=== PATIENT | male | born 1935 | race Caucasian/White ===

== ENCOUNTER 2017-02-16 10:25 | Emergency (ER) | payer OTHER ==
[~2017-02-16] VITALS: Wt 104.3 kg
[~2017-02-16 10:25] MED LIST: 'CLONIDINE0.1 MG PO; AMLODIPINE BESYL5 MG PO; Cimetidine300 MG PO; FAMVIR500 MG PO; Glimepiride1 MG PO; JANTOVEN4 M1 PO; LOTRISONE 0.05%45 GM T; SIMVASTATIN20 MG PO; TYLENOL325 M1 PO; VALSARTAN-HCTZ1 EAC1 PO
[2017-02-16] MEDS ORDERED: ZOCOR20 MG PO (10:45)
[2017-02-16] MEDS ORDERED: DIABETA,MICRO1.25 MG PO (10:45)
[2017-02-16] MEDS ORDERED: OMEPRAZOLE20 M2 PO (10:45)
[2017-02-16] MEDS ORDERED: Hyzaar 12.5 MG-1 TAB PO (10:45)
[2017-02-16] MEDS ORDERED: COUMADIN4 M2 PO (10:46)
[2017-02-16] MEDS ORDERED: DAILY VALUE1 EACH PO (10:46)
[2017-02-16] MEDS ORDERED: METOPROLOL TART50 M1 PO (10:46)
[2017-02-16 11:01] LABS: BASO % 0.4 % (0.0-1.0); EOS # 0.3 10*3/uL (0.0-0.4); EOS % 2.8 % (1.0-4.0); HEMATOCRIT 45.4 % (42.0-52.0); HEMOGLOBIN 15.4 g/dl (14.0-18.0); LYMPH % 36.2 % (27.0-41.0); MEAN CORPUSCULAR HGB 30.2 pg (27.0-31.0); MEAN CORPUSCULAR HGB CONC 33.9 g/dl (33.0-37.0); MEAN PLATELET VOLUME 10.2 fl (9.6-12.3); MONO # 1.2 10*3/uL (0.1-1.0); MONO % 10.6 % (3.0-9.0); NEUT # 5.5 10*3/uL (2.3-7.9); NEUT % 49.6 % (47.0-73.0); PLATELET COUNT AUTOMATED 193 10*3/uL (130-400); RED CELL DISTRI WIDTH 12.9 % (0-14.5); WHITE BLOOD COUNT 11.1 10*3/uL (4.8-10.8)
[2017-02-16 11:10] LABS: INTERNATIONAL NORM RATIO 1.1 (2.0-3.5)
[2017-02-16 11:19] LABS: ALBUMIN 3.7 gm/dl (3.1-4.5); ALKALINE PHOSPHATASE 56 U/L (45-117); BILIRUBIN, TOTAL 0.9 mg/dl (0.2-1.0); BUN 24 mg/dl (7-24); CARBON DIOXIDE 22 mmol/L (21-32); CHLORIDE 104 mmol/L (98-107); EST GLOM FILT AFRICAN AMERICAN 52 ml/min; GLUCOSE 209 mg/dL (65-99); MAGNESIUM 1.8 mg/dL (1.5-2.1); POTASSIUM 3.2 mmol/L (3.5-5.1); SGOT/AST 20 IU/L (3-35); SGPT/ALT 24 U/L (12-78); SODIUM 139 mmol/L (136-145); TOTAL PROTEIN 7.5 gm/dL (6.4-8.2)
[2017-02-16 11:20] LABS: TROPONIN I < 0.015 ng/ml (<0.045)
[2017-02-16] MEDS ORDERED: PREDNISONE10 MG PO (12:04)
[2017-02-16] MEDS ORDERED: 'PARAFON FORTE500 M1 PO (12:04)
[2017-02-16] MEDS ORDERED: HYDROCODONE BIT1 T11 PO (12:04)
[2017-02-16 12:17] VITALS: BP 150/72
== END 2017-02-16 13:27 | disposition home or self-care (01) ==
LOC: ED 10:25
PROVIDERS: Nurse Practitioner Family
DX: M54.32 Sciatica, left side (principal); M25.552 Pain in left hip; R03.0 Elevated blood-pressure reading, without diagnosis of hypertension; Z79.899 Other long term (current) drug therapy

== ENCOUNTER 2017-02-17 21:52 | Emergency (ER) | payer OTHER ==
[~2017-02-17] VITALS: Ht 170.1 cm; Wt 99.8 kg
[~2017-02-17 21:52] MED LIST changes: +'PARAFON FORTE500 M1 PO; +COUMADIN4 M2 PO; +DAILY VALUE1 EACH PO; +DIABETA,MICRO1.25 MG PO; +HYDROCODONE BIT1 T11 PO; +Hyzaar 12.5 MG-1 TAB PO; +METOPROLOL TART50 M1 PO; +OMEPRAZOLE20 M2 PO; +PREDNISONE10 MG PO; +ZOCOR20 MG PO
[2017-02-17 21:56] VITALS: BP 185/85
[2017-02-17 22:39] LABS: BASO % 0.2 % (0.0-1.0); HEMATOCRIT 47.5 % (42.0-52.0); HEMOGLOBIN 15.6 g/dl (14.0-18.0); LYMPH # 1.1 10*3/uL (1.3-4.4); MEAN CELL VOLUME 90.8 fl (80.0-94.0); MEAN CORPUSCULAR HGB 29.8 pg (27.0-31.0); MEAN CORPUSCULAR HGB CONC 32.8 g/dl (33.0-37.0); MEAN PLATELET VOLUME 10.2 fl (9.6-12.3); MONO # 0.5 10*3/uL (0.1-1.0); MONO % 4.7 % (3.0-9.0); NEUT # 9.7 10*3/uL (2.3-7.9); NEUT % 84.8 % (47.0-73.0); PLATELET COUNT AUTOMATED 179 10*3/uL (130-400); RED BLOOD COUNT 5.23 10*6/uL (4.50-5.90); RED CELL DISTRI WIDTH 13.1 % (0-14.5); WHITE BLOOD COUNT 11.4 10*3/uL (4.8-10.8)
[2017-02-17 22:50] LABS: INTERNATIONAL NORM RATIO 1.3 (2.0-3.5); PROTHROMBIN TIME 13.6 SECONDS (9.0-12.4)
[2017-02-17 22:53] LABS: POTASSIUM 4.4 mmol/L (3.5-5.1)
[2017-02-18 00:37] LABS: LA>2 REFLEX 2 HR DRAW NOW
== END 2017-02-18 00:31 | disposition short-term general hospital (02) ==
LOC: ED 21:52
PROVIDERS: Student in an Organized Health Care Education/Training Program
DX: I73.89 Other specified peripheral vascular diseases (principal); Z98.890 Other specified postprocedural states; Z90.49 Acquired absence of other specified parts of digestive tract; Z79.01 Long term (current) use of anticoagulants; Z79.899 Other long term (current) drug therapy; Z85.828 Personal history of other malignant neoplasm of skin

== ENCOUNTER 2017-06-30 09:45 | Inpatient (IN) | payer OTHER ==
[~2017-06-30] VITALS: Ht 167.6 cm; Wt 99.8 kg
[~2017-06-30 09:45] MED LIST changes: +METOPROLOL SUCC50 M1 PO; -METOPROLOL TART50 M1 PO
[2017-06-30 10:00] VITALS: BP 149/62
--- NOTE | 2017-06-30 10:14 | NUR ---
PATIENT REFUSES AT THIS TIME TO GET CHANGED OUT OF HIS PANTS AND SHIRTS. REFUSES GOWN.
[2017-06-30 11:06] LABS: BASO % 0.3 % (0.0-1.0); EOS # 0.2 10*3/uL (0.0-0.4); EOS % 2.7 % (1.0-4.0); HEMATOCRIT 42.2 % (42.0-52.0); HEMOGLOBIN 13.7 g/dl (14.0-18.0); LYMPH # 1.8 10*3/uL (1.3-4.4); LYMPH % 25.2 % (27.0-41.0); MEAN CELL VOLUME 85.1 fl (80.0-94.0); MEAN CORPUSCULAR HGB 27.6 pg (27.0-31.0); MEAN CORPUSCULAR HGB CONC 32.5 g/dl (33.0-37.0); MEAN PLATELET VOLUME 9.6 fl (9.6-12.3); MONO # 0.7 10*3/uL (0.1-1.0); MONO % 10.6 % (3.0-9.0); NEUT # 4.3 10*3/uL (2.3-7.9); NEUT % 60.9 % (47.0-73.0); PLATELET COUNT AUTOMATED 200 10*3/uL (130-400); RED BLOOD COUNT 4.96 10*6/uL (4.50-5.90); RED CELL DISTRI WIDTH 15.5 % (0-14.5)
--- NOTE | 2017-06-30 11:09 | NUR ---
PATIENT LEFT LOWER LEG HAS BEEN REWRAPPED WITH GAUZE. HARPREET CHANEY NOTIFIED TO REWRAP WITH PROPER DRESSING ONCE PATIENT IS ON THE FLOOR AND THE WOUND PICTURES HAV BEEN TAKEN BY ADMIT NURSE.
--- NOTE | 2017-06-30 11:12 | NUR ---
PATIENT TAKEN TO 5TH FLOOR AT THIS TIME BY LISET CHANEY.
[2017-06-30 11:15] LABS: ACT PARTIAL THROMBO TIME 33.3 SECONDS (20.8-31.5); INTERNATIONAL NORM RATIO 2.6 (2.0-3.5)
--- NOTE | 2017-06-30 11:15 | NUR ---
Time: 1114 A 82 year old MALE admitted to 5E under services of DOUGLAS MARQUEZ DO. Pt. arrived via bed from ER. Chief complaint: CELLULITIS OF LEFT LEG. [place]
[2017-06-30 11:21] LABS: ALBUMIN 3.3 gm/dl (3.1-4.5); ALKALINE PHOSPHATASE 57 U/L (45-117); BUN 17 mg/dl (7-24); CHLORIDE 102 mmol/L (98-107); CREATININE 1.05 mg/dL (0.70-1.30); LIPASE 191 U/L (73-393); POTASSIUM 3.8 mmol/L (3.5-5.1); SGOT/AST 19 IU/L (3-35); SGPT/ALT 22 U/L (12-78); SODIUM 138 mmol/L (136-145); TOTAL PROTEIN 7.3 gm/dL (6.4-8.2)
[2017-06-30 11:22] LABS: TROPONIN I < 0.015 ng/ml (<0.045)
[2017-06-30 11:30] VITALS: BP 164/76
[2017-06-30 11:50] VITALS: BP 162/86
[2017-06-30] MEDS ORDERED: METFORMIN500 MG PO (12:09)
[2017-06-30] MEDS ORDERED: Diltiazem180 MG PO (12:10)
[2017-06-30] MEDS ORDERED: VALSARTAN160 MG PO (12:11)
[2017-06-30] MEDS ORDERED: MULTI-VITAMIN1 EACH PO (12:12)
[2017-06-30] MEDS ORDERED: Glimepiride1 MG PO (12:13)
--- NOTE | 2017-06-30 13:15 | NUR ---
DR. VALDEZ SEEN PERSONALLY AND NOTIFIED OF PT CONSULT. THE DR WAS UPDATED ON THE PATIENTS CONDITION AND AND HX. NO CONCERN FROM THE DR. HE STATED HE WOULD GO AND SEE THE PT SOON.
[2017-06-30 16:00] VITALS: BP 150/79
[2017-06-30] MEDS ORDERED: VITAMIN C500 M4 PO (16:53)
[2017-06-30 20:00] VITALS: BP 168/76
--- NOTE | 2017-06-30 21:00 | NUR ---
RESTING IN BED WITH NO DISTRESS NOTED. RESPIRATIONS EASY. LUNGS DIMINISHED, CLEAR. PULSE OX 97% RA. +1 RLE EDEMA, +2 LLE EDEMA WITH DRESSING MAINTAINED. CALL LIGHT WITHIN REACH. NO VOICED COMPLAINTS
--- NOTE | 2017-06-30 22:31 | NUR ---
REQUESTED AND RECEIVED TYLENOL PER PRN ORDER FOR COMPLAINTS OF HEADACHE RATING A 7. CALL LIGHT WITHIN REACH. WILL MONITOR FOR EFFECTIVENESS
[2017-07-01] VITALS: BP 149/77
--- NOTE | 2017-07-01 | NUR ---
EARLIER MEDS APPEAR EFFECTIVE. SLEEPING. RESPIRATIONS EASY. VSS. CALL LIGHT WITHIN REACH.
[2017-07-01] MEDS ORDERED: VALSARTAN-HCTZ1 EAC1 PO (04:13)
[2017-07-01] MEDS ORDERED: JANTOVEN4 M1 PO (04:13)
--- NOTE | 2017-07-01 06:00 | NUR ---
SLEPT THROUGHOUT NIGHT WITH NO DISTRESS NOTED. RESPIRATIONS EASY. CALL LIGHT WITHIN REACH. NO VOICED COMPLAINTS THIS SHIFT
[2017-07-01 07:10] LABS: BASO % 0.3 % (0.0-1.0); EOS # 0.2 10*3/uL (0.0-0.4); EOS % 3.1 % (1.0-4.0); HEMOGLOBIN 13.1 g/dl (14.0-18.0); LYMPH % 32.1 % (27.0-41.0); MEAN CELL VOLUME 84.4 fl (80.0-94.0); MEAN CORPUSCULAR HGB 27.6 pg (27.0-31.0); MEAN CORPUSCULAR HGB CONC 32.8 g/dl (33.0-37.0); MEAN PLATELET VOLUME 9.6 fl (9.6-12.3); MONO # 0.8 10*3/uL (0.1-1.0); MONO % 12.3 % (3.0-9.0); NEUT # 3.2 10*3/uL (2.3-7.9); NEUT % 51.9 % (47.0-73.0); PLATELET COUNT AUTOMATED 181 10*3/uL (130-400); RED BLOOD COUNT 4.74 10*6/uL (4.50-5.90); RED CELL DISTRI WIDTH 15.5 % (0-14.5); WHITE BLOOD COUNT 6.1 10*3/uL (4.8-10.8)
[2017-07-01 07:46] LABS: INTERNATIONAL NORM RATIO 2.3 (2.0-3.5)
[2017-07-01 07:49] LABS: ALBUMIN 3.1 gm/dl (3.1-4.5); ALKALINE PHOSPHATASE 50 U/L (45-117); BUN 16 mg/dl (7-24); CHLORIDE 102 mmol/L (98-107); CHOLESTEROL 150 mg/dL (<200); CREATININE 0.94 mg/dL (0.70-1.30); FREE T4 1.16 ng/dl (0.76-1.46); HDL CHOLESTEROL 32 mg/dl (40-60); LDL CHOLESTEROL 61 mg/dL (9-159); PHOSPHOROUS 3.6 mg/dL (2.5-4.9); POTASSIUM 3.7 mmol/L (3.5-5.1); SGOT/AST 19 IU/L (3-35); SGPT/ALT 22 U/L (12-78); SODIUM 138 mmol/L (136-145); TOTAL PROTEIN 6.7 gm/dL (6.4-8.2); TRIGLYCERIDES 283 mg/dl (<150); VLDL CHOLESTEROL 57 mg/dL (6-40)
[2017-07-01 08:00] VITALS: BP 152/80
--- NOTE | 2017-07-01 08:05 | NUR ---
PT SITTING UP EATING BREAKFAST. NO DISTRESS NOTED. WILL MONITOR
[2017-07-01 08:10] LABS: VITAMIN D, 25-HYDROXY 30.1 ng/mL (30-100)
--- NOTE | 2017-07-01 09:00 | NUR ---
Counter Weigher in to talk to patient. Patient states lives at home with . There are no steps in the home. Physician: harinder Pharmacy: Home health services: [facility] Patient's level of ADLs: MINIMAL ASSIST Patient has working utilities: all working DME: cane, walker, wheelchair Follow-up physician's appointment after d/c: will be made by hospitalist nurse director upon discharge Does patient want to access PORTAL?: no Discharge plan discussed with patient, patient lives at home with his , states he uses a cane or walker for ambulation, patient states he has [facility] and wants them resumed when he is stable for discharge, mechanical planner will notify [facility] when patient is medically stable for discharge. QIANA WICK
--- NOTE | 2017-07-01 10:39 | NUR ---
Patient is currently active with [facility]. Will need a resume home health order prior to discharge.
--- NOTE | 2017-07-01 11:47 | NUR ---
CALLED JOE JACKMAN REGARDING PT HR 50S. HELD JORGE, CHRISTOPHER, AND ILA PER JOE
[2017-07-01 12:00] VITALS: BP 133/75
--- NOTE | 2017-07-01 12:29 | NUR ---
ANTOINE MONTALVO [id number] Please refer to the physician's history and physical for past medical history, comorbid conditions, and allergies. Diagnosis: CELLULITIS OF LEFT LOWER EXTREMITY Fermin Score: 20,LOW OR NO RISK WOUND DESCRIPTIONS: Location of the wound: left top of foot Type of wound: unstageable Thickness: Full Size: 3.0cm x 3.0cm x <0.1cm Tunneling: none Undermining: none Sinus Tract: none Presence of Exudate: none Amount: None Color: Brown Odor: None Periwound Skin Appearance: Normal Wound edges: closed Pain (associated with wound): none at time of assessment How does patient state this happened? pt stated had surgery on february 18 and was following with wound care center [facility] but unable to afford it and is just following up with Dr. Street is PCP for his wounds. This nurse encouraged patient to follow up with wound care after discharge and patient stated he will continue his visiting nurses and follow up with his PCP. Location of the wound: left leg medial Type of wound: surgical Thickness: Partial Size: 12.0cm x 2.4cm x 0.1cm Tunneling: none Undermining: none Sinus Tract: none Presence of Exudate: Serosanguineous Amount: Light Color: Red Odor: None Periwound Skin Appearance: Erythema Wound edges: approximated Pain (associated with wound): none at time of assessment How does patient state this happened? pt stated had surgery on february 18 and was following with wound care center [facility] but unable to afford it and is just following up with Dr. Street is PCP for his wounds. This nurse encouraged patient to follow up with wound care after discharge and patient stated he will continue his visiting nurses and follow up with his PCP. Location of the wound: left posterior leg Type of wound: surgical Thickness: Partial Size: 0.7cm x 1.5cm x 0.1cm Tunneling: none Undermining: none Sinus Tract: none Presence of Exudate: Serosanguineous Amount: Light Color: Red Odor: None Periwound Skin Appearance: Erythema Wound edges: approximated Pain (associated with wound): none at time of assessment How does patient state this happened? pt stated had surgery on february 18 and was following with wound care center [facility] but unable to afford it and is just following up with Dr. Street is PCP for his wounds. This nurse encouraged patient to follow up with wound care after discharge and patient stated he will continue his visiting nurses and follow up with his PCP. Surface the patient is resting on: Position Pro SKIN PREVENTION RECOMMENDATION: 1. Pressure redistribution support surface as appropriate 2. Elevate heels 3. Remove boots/TEDS every shift and reapply 4. Head of bed 30 degrees as tolerated 5. Assess nutrition and hydration 6. Manage moisture 7. Avoid the use of containment devices while in bed 8. Use absorptive products on surfaces limit layers of linens on bed 9. Turn and reposition every 1-2 hours in bed and every 1 hour in chair as tolerated 10. Weight shifts every 15 minutes while up in chair 11. Offloading with pillows or device to keep heels elevated off bed 12. Monitor skin at least every shift 13. Inspect under medical devices twice a day WOUND TREATMENT RECOMMENDATIONS: Spoke with Dr. Trammell regarding patient needing dressin change orders he stated cleanse with nss and apply adaptic cover with 4x4 or abd and wrap with kerlix daily and prn for soiling.
[2017-07-01 16:00] VITALS: BP 171/75
--- NOTE | 2017-07-01 18:48 | NUR ---
SPOKE WITH JOE JACKMAN REGARDING PT BP AND HR. PT TO HAVE COZZAR PER JOE
--- NOTE | 2017-07-01 19:30 | NUR ---
ASSUMED CARE OF PT AT THIS TIME, RESPS EASY AND NONLABORED WITH NO S/S OF DISTRESS CALL LIGHT WITH IN REACH
[2017-07-01 20:00] VITALS: BP 164/78
[2017-07-02] VITALS: BP 155/88
--- NOTE | 2017-07-02 01:57 | NUR ---
RESTING IN BED WITH EYES CLOSED RESPS EASY AND NONLABORED WITH NO S/S OF DISTRESS CALL LIGHT WITH IN REACH
[2017-07-02 08:00] VITALS: BP 170/84
--- NOTE | 2017-07-02 09:00 | NUR ---
case management visits with patient, patient states he will be going home when able and wants to resume [facility], will notify [facility] when patient is medically stable for discharge
[2017-07-02 12:00] VITALS: BP 180/84
[2017-07-02 16:00] VITALS: BP 170/87
[2017-07-02 20:00] VITALS: BP 176/79
[2017-07-03] VITALS: BP 1164/86; BP 164/86
--- NOTE | 2017-07-03 01:09 | NUR ---
24 HR chart check completed.
[2017-07-03 08:00] VITALS: BP 159/70
--- NOTE | 2017-07-03 09:00 | NUR ---
case management visits with patient, patient states he will be going back home and will have [facility] see him, convention planner will notify [facility] when patient is medically stable for discharge
--- NOTE | 2017-07-03 11:15 | NUR ---
PATIENT STATES LEAVING AMA BECAUSE WOUND CARE DOCTOR CLEARED HIM TO GO AND HE WILL NOT WAIT FOR ANOTHER DOCTOR (HOSPITALIST) TO SEE HIM, HAS BEEN WAITING FOR TWO DAYS, NOW WANTS TO LEAVE. PATIENT LEFT AMA, AMBULATORY TO FRONT LOBBY FOR TRANSPORT HOME BY PRIVATE VEHICLE AGAINST MEDICAL ADVICE. DR. PRITCHETT NOTIFIED.
== END 2017-07-03 11:21 | disposition left against medical advice (07) | DRG 863 ==
LOC: ED 09:45 → EDHOLD 10:43 → 5E 10:43
PROVIDERS: Emergency Medicine; Registered Nurse; ADMIT Internal Medicine
PROC: 0H5LXZZ Destruction of Left Lower Leg Skin, External Approach (ICD-10-PCS; principal; 2017-07-01)
DX: T81.4XXA Infection following a procedure, initial encounter (principal); E11.51 Type 2 diabetes mellitus with diabetic peripheral angiopathy without gangrene; E11.621 Type 2 diabetes mellitus with foot ulcer; L03.116 Cellulitis of left lower limb; L97.829 Non-pressure chronic ulcer of other part of left lower leg with unspecified severity; Y92.89 Other specified places as the place of occurrence of the external cause; Y83.8 Other surgical procedures as the cause of abnormal reaction of the patient, or of later complication, without mention of misadventure at the time of the procedure; R00.1 Bradycardia, unspecified; M71.22 Synovial cyst of popliteal space [Baker], left knee; E78.5 Hyperlipidemia, unspecified; I10 Essential (primary) hypertension; Z53.21 Procedure and treatment not carried out due to patient leaving prior to being seen by health care provider; Z82.49 Family history of ischemic heart disease and other diseases of the circulatory system; Z83.3 Family history of diabetes mellitus; Z79.01 Long term (current) use of anticoagulants; Z86.718 Personal history of other venous thrombosis and embolism; Z85.828 Personal history of other malignant neoplasm of skin; Z90.49 Acquired absence of other specified parts of digestive tract; Z79.899 Other long term (current) drug therapy

== ENCOUNTER 2019-08-16 09:13 | Inpatient (IN) | payer OTHER ==
[2019-08-16] VITALS (9 sets, daily range): BP systolic 104–136; BP diastolic 52–84
[~2019-08-16] VITALS: Ht 172.7 cm; Wt 90.3 kg
[~2019-08-16 09:13] MED LIST changes: +Diltiazem180 MG PO; +METFORMIN500 MG PO; +MULTI-VITAMIN1 EACH PO; +VALSARTAN160 MG PO; +VITAMIN C500 M4 PO
--- NOTE | 2019-08-16 09:26 | NUR ---
PT UNABLE TO PROVIDE URINE SPECIMEN AT THIS TIME.
--- NOTE | 2019-08-16 09:30 | NUR ---
PT DECLINES TO DUISROBE HIS PANTS UNTIL ARRIVAL AT INPATIENT BED.
[2019-08-16 09:58] LABS: BASO % 0.2 % (0.0-1.0); EOS # 0.1 10*3/uL (0.0-0.4); HEMATOCRIT 41.7 % (42.0-52.0); HEMOGLOBIN 13.8 g/dl (14.0-18.0); LYMPH # 2.5 10*3/uL (1.3-4.4); LYMPH % 18.8 % (27.0-41.0); MEAN CELL VOLUME 91.4 fl (80.0-94.0); MEAN CORPUSCULAR HGB 30.3 pg (27.0-31.0); MEAN CORPUSCULAR HGB CONC 33.1 g/dl (33.0-37.0); MEAN PLATELET VOLUME 9.7 fl (9.6-12.3); MONO # 1.2 10*3/uL (0.1-1.0); MONO % 9.3 % (3.0-9.0); NEUT # 9.2 10*3/uL (2.3-7.9); NEUT % 70.2 % (47.0-73.0); PLATELET COUNT AUTOMATED 392 10*3/uL (130-400); RED BLOOD COUNT 4.56 10*6/uL (4.50-5.90); RED CELL DISTRI WIDTH 13.1 % (0-14.5)
[2019-08-16 10:13] LABS: ALBUMIN 3.8 gm/dl (3.1-4.5); ALKALINE PHOSPHATASE 60 U/L (45-117); BUN 84 mg/dl (7-24); CHLORIDE 97 mmol/L (98-107); CREATININE 2.55 mg/dL (0.70-1.30); LIPASE 219 U/L (73-393); POTASSIUM 3.5 mmol/L (3.5-5.1); SGOT/AST 21 IU/L (3-35); SGPT/ALT 19 U/L (12-78); SODIUM 133 mmol/L (136-145); TOTAL PROTEIN 8.4 gm/dL (6.4-8.2)
[2019-08-16 10:14] LABS: TROPONIN I < 0.015 ng/ml (<0.045)
[2019-08-16 10:30] LABS: ACT PARTIAL THROMBO TIME 75.8 SECONDS (20.0-32.1)
[2019-08-16 10:34] LABS: INTERNATIONAL NORM RATIO > 9.3 (2.0-3.5)
--- NOTE | 2019-08-16 10:34 | NUR ---
NOTIFIED BY LAB PTS INR IS GREATER THAN 9.3. DR COLEY NOTIFIED.
[2019-08-16 11:35] LABS: BILIRUBIN NEGATIVE (NEGATIVE); BLOOD NEGATIVE (NEGATIVE); CLARITY SL CLOUDY (CLEAR); COLOR YELLOW (YELLOW); GLUCOSE NEGATIVE (NEGATIVE); KETONE TRACE (NEGATIVE); LEUKO ESTERASE NEGATIVE (NEGATIVE); NITRITE NEGATIVE (NEGATIVE); PH 5.5 (5.0-9.0); UROBILINOGEN 0.2 E.U./dl (0.2-1.0)
[2019-08-16 11:46] LABS: BACTERIA TRACE; EPITHELIAL CELLS 0-2; WBC 0-2 wbc/hpf (0-5)
--- NOTE | 2019-08-16 12:54 | NUR ---
PT REPORTS BLack STOOL TO THE DR WHO DOES A RECTAL EXCAM AND FINDS +HEMACULT IN STOOL. ADMISSION PENDING.
--- NOTE | 2019-08-16 14:08 | NUR ---
BED ASSIGNED ICU 6. AWAITING OPPORTUNITY TO PROVIDE NURSE REPORT.
--- NOTE | 2019-08-16 14:23 | NUR ---
INFORMED CONSENT FOR F.F.P.'S OBTAINED NOW.
--- NOTE | 2019-08-16 14:50 | NUR ---
A 84, admitted to ICCU, under the services of TERRY Jarvis DO with a diagnosis of ANEMIA. Chief complaint is ABDOMINAL PAIN, . Patient arrived via stretcher from ER. Monitor applied. Initial assessment completed. Vital signs taken and recorded. TERRY JARVIS DO notified of admission to the unit. Orders received. See assessment for past medical history, medications and allergies. Patient and/or family oriented to unit. [facility] ICCU visitation policy reviewed. Clothing/patient valuable form completed. KALANI SALEEM
--- NOTE | 2019-08-16 14:55 | NUR ---
ADMISSION IN PROGRESS TO ICCU NOW.
--- NOTE | 2019-08-16 15:00 | NUR ---
A 84, admitted to ICCU, under the services of TERRY Jarvis DO with a diagnosis of GI BLEED, ACUTE BLOOD LOSS, WARFARIN INDUCED. Chief complaint is ABD PAIN & NAUSEA W/O BLOOD, BLOOD IN URINE & STOOLS. . Patient arrived via stretcher from ER. Monitor applied. Initial assessment completed. Vital signs taken and recorded. TERRY JARVIS DO notified of admission to the unit. Orders received. DR WATTERS CAME TO VISIT. IV FFP INFUSING See assessment for past medical history, medications and allergies. Patient and/or family oriented to unit. [facility] ICCU visitation policy reviewed. Clothing/patient valuable form completed. MORGAN STEELE
--- NOTE | 2019-08-16 15:03 | NUR ---
ER CALLED THAT BED IS READY & PATIENT CAN BE BROUGHT UP
--- NOTE | 2019-08-16 15:24 | NUR ---
DR LORENZ HERE TO SEE THE PATIENT
--- NOTE | 2019-08-16 15:33 | NUR ---
DENIES ALL C/O WITH FFP INFUSION
--- NOTE | 2019-08-16 16:18 | NUR ---
FFP COMPLETED & VITAMIN K IV STARTED
--- NOTE | 2019-08-16 16:26 | NUR ---
DR STAPLES ROUNDED FOR CARDIOLOGY & HE SAID NO NEED TO CALL THE ANSWERING SERVICE DR ESCOBAR IS ALREADY AWARE & IS COMING UP
[2019-08-16] MEDS ORDERED: FENOFIBRATE160 MG PO (16:53)
[2019-08-16] MEDS ORDERED: GLIPIZIDE10 M2 PO (16:56)
[2019-08-16] MEDS ORDERED: GLUCOTROL10 MG PO (16:56)
[2019-08-16] MEDS ORDERED: LASIX40 MG PO (16:57)
[2019-08-16] MEDS ORDERED: CLONIDINE0.2 MG PO (17:01)
[2019-08-16] MEDS ORDERED: JANTOVEN5 MG PO (17:02)
--- NOTE | 2019-08-16 17:08 | NUR ---
DR LORENZ, DR ESCOBAR AWARE OF HOME MEDS & ALLERGIES
[2019-08-16 19:50] LABS: INTERNATIONAL NORM RATIO 2.9 (2.0-3.5)
--- NOTE | 2019-08-16 20:23 | NUR ---
193 DR. GUIDRY BEEPED FOR CONSULT. 1939 PT RESTING IN BED WITH HOB ELEVATED. SIDE RAILS UP X'S 2. CALL LIGHT IN REACH. ALERT AND PLEASANT. PULSE OX 96% ON RA. IV FLUIDS INFUSING WELL. DENIES C/O'S PAIN OR DISCOMFORT AT PRESENT TIME. NO DISTRESS NOTED.
--- NOTE | 2019-08-16 20:45 | NUR ---
DR. GUIDRY ANSWERED - NO NEW ORDERS RECEIVED.
--- NOTE | 2019-08-16 22:15 | NUR ---
RESTING IN BED WATCHING TV. STATES "I FEEL A LOT BETTER."
[2019-08-17] VITALS: BP 115/61
--- NOTE | 2019-08-17 00:14 | NUR ---
RESTING IN BED WITH EYES CLOSED. APPEARS TO BE SLEEPING. NO DISTRESS NOTED.
[2019-08-17 04:00] VITALS: BP 114/63
--- NOTE | 2019-08-17 04:23 | NUR ---
0300 SPILLED URINAL. COMPLETE BED BATH GIVEN AND LINENS CHANGED. REPOSITIONED.
[2019-08-17 04:43] LABS: BASO % 0.3 % (0.0-1.0); EOS # 0.1 10*3/uL (0.0-0.4); EOS % 1.1 % (1.0-4.0); HEMATOCRIT 35.5 % (42.0-52.0); HEMOGLOBIN 11.9 g/dl (14.0-18.0); LYMPH # 1.8 10*3/uL (1.3-4.4); MEAN CELL VOLUME 92.4 fl (80.0-94.0); MEAN CORPUSCULAR HGB CONC 33.5 g/dl (33.0-37.0); MEAN PLATELET VOLUME 9.6 fl (9.6-12.3); MONO # 1.1 10*3/uL (0.1-1.0); MONO % 11.6 % (3.0-9.0); NEUT # 6.1 10*3/uL (2.3-7.9); NEUT % 66.6 % (47.0-73.0); PLATELET COUNT AUTOMATED 326 10*3/uL (130-400); RED BLOOD COUNT 3.84 10*6/uL (4.50-5.90); WHITE BLOOD COUNT 9.1 10*3/uL (4.8-10.8)
[2019-08-17 04:55] LABS: ACT PARTIAL THROMBO TIME 32.6 SECONDS (20.0-32.1); INTERNATIONAL NORM RATIO 1.5 (2.0-3.5)
[2019-08-17 04:59] LABS: ALBUMIN 3.3 gm/dl (3.1-4.5); CREATININE 1.71 mg/dL (0.70-1.30); PHOSPHOROUS 2.9 mg/dL (2.5-4.9); POTASSIUM 3.1 mmol/L (3.5-5.1); TOTAL PROTEIN 7.4 gm/dL (6.4-8.2)
[2019-08-17 05:18] LABS: THYROID STIM HORMONE (HS) 1.96 uIU/ml (0.358-4.75)
--- NOTE | 2019-08-17 06:11 | NUR ---
REMAINS WIHTOUT C/O'S. IV FLUIDS CONT. NO DISTRESS NOTED. CONDITION GUARDED.
[2019-08-17 07:36] LABS: VITAMIN D, 25-HYDROXY 34.2 ng/mL (30-100)
[2019-08-17 08:00] VITALS: BP 120/69
--- NOTE | 2019-08-17 08:04 | NUR ---
PHYSICAL THERAPY Screen received as well as PT orders will follow thank you Krystal Ledezma PT
[2019-08-17] MEDS ORDERED: GLIMEPIRIDE4 M1 PO (09:22)
[2019-08-17] MEDS ORDERED: GEMFIBROZIL600 MG PO (09:24)
[2019-08-17 12:00] VITALS: BP 153/81
--- NOTE | 2019-08-17 14:00 | NUR ---
PLACED UP INTO CHAIR WITH ASSIST TIMES ONE. TOLERATED FAIR.
--- NOTE | 2019-08-17 15:45 | NUR ---
Clinical Psychology Professor in to talk to patient. Patient states lives at home with his . There are 0 steps in the home. There is a chair lift. Physician: Dr. Raphael Street Pharmacy: [facility] services: would like [facility] on discharge Patient's level of ADLs: MINIMAL ASSIST Patient has working utilities: yes DME: wheelchair, walker, cane Follow-up physician's appointment after d/c: will be made by the hospitalist nurse director upon discharge Does patient want to access PORTAL?: no Discharge plan discussed with patient and his who is at the bedside. He lives at home with his . He needs minimal assistance with his ADLs and ambulates with either a walker or a cane or uses a wheelchair. Discussed short term SNF and he refuses. Discussed home health care services and he is agreeable. When provided with a list of agencies he chose [facility]. When medically stable he will be discharged to home with [facility] services. His will provide transportation on discharge. SUKHJINDER GLASGOW
[2019-08-17 16:00] VITALS: BP 154/78
[2019-08-17 20:00] VITALS: BP 143/72
--- NOTE | 2019-08-17 20:09 | NUR ---
1944 RESTING IN BED WITH HOB ELEVATED. SIDE RAILS UP X'S 2. CALL LIGHT IN REACH. PULSE OX 96% ON RA. IV FLUIDS CONT. URINAL AT BEDSIDE. LINENS ALSO WET. LINENS CHANGED AND ASHLEY CARE DONE. NO DISTRESS NOTED
--- NOTE | 2019-08-17 21:17 | NUR ---
2029 COMPLETE BED CHANGE DONE AND BED BATH GIVEN. TOELRATED WELL
[2019-08-18] VITALS (10 sets, daily range): BP systolic 145–181; BP diastolic 75–94
--- NOTE | 2019-08-18 00:20 | NUR ---
NPO FOR EGD IN AM. REMAINS WITHOUT C/O'S.
--- NOTE | 2019-08-18 04:14 | NUR ---
CONFUSED TO PLACE AND TIME. BED ALARM APPLIED. REMAINS NPO.
[2019-08-18 04:40] LABS: BASO % 0.3 % (0.0-1.0); EOS % 0.3 % (1.0-4.0); HEMATOCRIT 34.3 % (42.0-52.0); HEMOGLOBIN 11.2 g/dl (14.0-18.0); LYMPH # 1.6 10*3/uL (1.3-4.4); LYMPH % 13.7 % (27.0-41.0); MEAN CORPUSCULAR HGB 30.7 pg (27.0-31.0); MEAN CORPUSCULAR HGB CONC 32.7 g/dl (33.0-37.0); MEAN PLATELET VOLUME 9.3 fl (9.6-12.3); MONO # 1.3 10*3/uL (0.1-1.0); MONO % 11.4 % (3.0-9.0); NEUT # 8.6 10*3/uL (2.3-7.9); NEUT % 73.9 % (47.0-73.0); PLATELET COUNT AUTOMATED 305 10*3/uL (130-400); RED BLOOD COUNT 3.65 10*6/uL (4.50-5.90); RED CELL DISTRI WIDTH 12.9 % (0-14.5); WHITE BLOOD COUNT 11.6 10*3/uL (4.8-10.8)
--- NOTE | 2019-08-18 04:47 | NUR ---
TAKING MONITOR LEADS OFF. REMAINS CONFUSED. LINENS WET. ASHLEY CARE DONE AND COMPLETE BED CHANGE DONE.
[2019-08-18 05:38] LABS: CHLORIDE 111 mmol/L (98-107); CREATININE 1.35 mg/dL (0.70-1.30); PHOSPHOROUS 1.7 mg/dL (2.5-4.9); POTASSIUM 3.9 mmol/L (3.5-5.1); SODIUM 144 mmol/L (136-145)
[2019-08-18 05:44] LABS: BUN 40 mg/dl (7-24)
--- NOTE | 2019-08-18 06:08 | NUR ---
REMAINS NPO. REORIENTED FREQUENTLY. IV FLUIDS CONT. CONDITION GUARDED.
[2019-08-18 08:02] LABS: INTERNATIONAL NORM RATIO 1.1 (2.0-3.5)
--- NOTE | 2019-08-18 09:52 | NUR ---
KNUCKLER faxed [facility] order and referral to [facility]. -BOOM Mendez
--- NOTE | 2019-08-18 10:35 | NUR ---
PHYSICAL THERAPY Attempted to see pt for evaluation out of unit for procedure, EGD will follow as appropriate upon return. Krystal Ledezma PT
--- NOTE | 2019-08-18 10:36 | NUR ---
Occupational therapy orders received and chart reviewed. Patient was at an EGD upon arrival. Will check back at a later date to complete OT evaluation. Thank you. Cherry Miles, OTR/L
--- NOTE | 2019-08-18 13:05 | NUR ---
Occupational therapy orders received and chart reviewed. Patient was getting his lunch upon OT arrival. Patient requesting for OT to return after lunch and stated he would be getting HH services after discharge. Patient educated on benefits of OT treatment in the hospital and was agreeable to an evaluation at a later time. Will stop back later this afternoon. Thank you. Cherry Miles, OTR/L
--- NOTE | 2019-08-18 14:22 | NUR ---
Sales Associate Cashier in to see patient. No new needs or request at this time. When medically stable he will be discharged to home with [facility]. is agreeable. He had an EGD today.
--- NOTE | 2019-08-18 14:30 | NUR ---
Occupational therapy orders received and chart reviewed. Patient refusing therapy at this time stating, "I don't feel like getting out of bed." Per patient and nursing, patient is non-weight bearing on the right LE secondary to a foot/ankle fx from two weeks ago. Per patient, no surgery was performed. Will follow up with patient when appropriate. Thank you for the referral. Cherry Miles, OTR/L
--- NOTE | 2019-08-18 14:42 | NUR ---
PHYSICAL THERAPY Attempted to evaluate pt however pt declining therapy at this time after EGD per nsg pt has hx of R ankle/foot fx (no surgery per pt) to be [facility] w [facility]. Will follow for eval 08/19/19 Krystal Ledezma PT
[2019-08-19] VITALS: BP 144/72
--- NOTE | 2019-08-19 01:52 | NUR ---
24 HR chart check completed.
[2019-08-19 06:05] LABS: ALBUMIN 3.2 gm/dl (3.1-4.5); ALKALINE PHOSPHATASE 48 U/L (45-117); CHLORIDE 110 mmol/L (98-107); CREATININE 1.28 mg/dL (0.70-1.30); POTASSIUM 3.8 mmol/L (3.5-5.1); SGOT/AST 31 IU/L (3-35); SGPT/ALT 26 U/L (12-78); SODIUM 140 mmol/L (136-145); TOTAL PROTEIN 7.6 gm/dL (6.4-8.2)
[2019-08-19 06:06] LABS: HEMATOCRIT 34.7 % (42.0-52.0); HEMOGLOBIN 11.3 g/dl (14.0-18.0); MEAN CELL VOLUME 95.9 fl (80.0-94.0); MEAN CORPUSCULAR HGB 31.2 pg (27.0-31.0); MEAN CORPUSCULAR HGB CONC 32.6 g/dl (33.0-37.0); MEAN PLATELET VOLUME 9.8 fl (9.6-12.3); PLATELET COUNT AUTOMATED 304 10*3/uL (130-400); RED BLOOD COUNT 3.62 10*6/uL (4.50-5.90); RED CELL DISTRI WIDTH 13.2 % (0-14.5); WHITE BLOOD COUNT 14.4 10*3/uL (4.8-10.8)
[2019-08-19 06:09] LABS: BUN 26 mg/dl (7-24)
[2019-08-19 06:27] LABS: INTERNATIONAL NORM RATIO 1.1 (2.0-3.5)
[2019-08-19 07:38] LABS: BASOPHILS 1 % (0-1); PLATELET SUFFICIENCY NORMAL (NORMAL); TOTAL CELLS COUNTED 100 #CELLS
[2019-08-19 08:00] VITALS: BP 154/74
--- NOTE | 2019-08-19 09:00 | NUR ---
Portrait Photographer in to see patient. No new needs or request at this time. When medically stable he will be discharged to home with [facility] services. Dr. Noe saw and medical decisions should be deferred to the DPOA. There is no DPOA paperwork completed. The would like the patient to go home with [place]. Metoprolol and hydralazine added for HTN, BP this morning 144/72. EGD showed gastritis. Hgb 11.3.
--- NOTE | 2019-08-19 09:10 | NUR ---
RESTING IN BED WITH EYES CLOSED. DROWSY. ORIENTED TO PLACE. VITALS STABLE. LUNGS CLEAR BILATERALLY. EDEMA NOTED TO BILATERAL LOWER EXTREMITIES. CONFUSED AT TIMES
--- NOTE | 2019-08-19 10:30 | NUR ---
Occupational Therapy evaluation explained and offered with present. Patient in bed and reports that he "is all set up at home" and he is agreeable to [facility] health [facility]. When asked how patient would get up into w/c and into car to transport home when he has not bee up out of bed much since admission, he reported "oh I'll get up to go home." Patient pleasantly declined OT stating that he cannot put weight on his RLE and his left foot is sore, so he cannot put much weight on his left."I have 2 feet and I can't walk". Nurse informed of patients decline in OT services. Discharge referral per patient;s request. present and reports that she will help him. Thank yoU. Gi Plascencia OTr/l
[2019-08-19 12:00] VITALS: BP 152/64
--- NOTE | 2019-08-19 14:20 | NUR ---
PHYSICAL THERAPY Attempted to evaluate pt at the states "I don't want any therapy now" spoke w pt regarding need for increase activity however stats "I will do that at home" Spoke w pt's nurse Verna gentile pt refusing therapy and will attempt again in the AM. Krystal Ledezma PT
[2019-08-19 16:00] VITALS: BP 145/66
--- NOTE | 2019-08-19 19:05 | NUR ---
TYLENOL ADMINISTERED FOR PT C/O ARTHRITIC PAIN IN HIS RIGHT HAND RATED A 10/10 ON THE PAIN SCALE. WILL CONTINUE TO MONITOR AND REASSESS.
--- NOTE | 2019-08-19 19:49 | NUR ---
PT STATES THE TYLENOL WAS EFFECTIVE.
[2019-08-19 20:00] VITALS: BP 136/67
[2019-08-20] VITALS: BP 147/74
--- NOTE | 2019-08-20 00:56 | NUR ---
24 HOUR CHART CHECK COMPLETE.
[2019-08-20 05:04] VITALS: BP 144/70
[2019-08-20 06:42] LABS: BASO % 0.3 % (0.0-1.0); EOS # 0.2 10*3/uL (0.0-0.4); EOS % 1.8 % (1.0-4.0); HEMATOCRIT 32.2 % (42.0-52.0); HEMOGLOBIN 10.4 g/dl (14.0-18.0); LYMPH # 1.6 10*3/uL (1.3-4.4); MEAN CELL VOLUME 95.8 fl (80.0-94.0); MEAN CORPUSCULAR HGB CONC 32.3 g/dl (33.0-37.0); MEAN PLATELET VOLUME 9.7 fl (9.6-12.3); MONO # 1.1 10*3/uL (0.1-1.0); MONO % 10.2 % (3.0-9.0); NEUT # 7.9 10*3/uL (2.3-7.9); NEUT % 72.3 % (47.0-73.0); PLATELET COUNT AUTOMATED 295 10*3/uL (130-400); RED BLOOD COUNT 3.36 10*6/uL (4.50-5.90); RED CELL DISTRI WIDTH 13.4 % (0-14.5); WHITE BLOOD COUNT 10.9 10*3/uL (4.8-10.8)
[2019-08-20 07:24] LABS: CHLORIDE 108 mmol/L (98-107); POTASSIUM 3.6 mmol/L (3.5-5.1); SODIUM 141 mmol/L (136-145)
[2019-08-20 07:35] LABS: ALBUMIN 2.7 gm/dl (3.1-4.5); ALKALINE PHOSPHATASE 51 U/L (45-117); BUN 29 mg/dl (7-24); CREATININE 1.25 mg/dL (0.70-1.30); SGOT/AST 45 IU/L (3-35); SGPT/ALT 46 U/L (12-78); TOTAL PROTEIN 6.7 gm/dL (6.4-8.2)
[2019-08-20 08:00] VITALS: BP 148/80
--- NOTE | 2019-08-20 08:51 | NUR ---
PT IS RELAXING IN BED AND WATCHING TV. JAEL MELLO [facility]
--- NOTE | 2019-08-20 10:18 | NUR ---
PT IS RESTING AT THIS TIME. JAEL MELLO SPNR[facility]
[2019-08-20] MEDS ORDERED: METOPROLOL SUCC25 M2 PO (10:48)
[2019-08-20] MEDS ORDERED: APRESOLINE25 MG PO (10:48)
[2019-08-20] MEDS ORDERED: ELIQUIS5 M1 PO (10:48)
[2019-08-20 11:30] VITALS: BP 145/84
--- NOTE | 2019-08-20 11:35 | NUR ---
PT is having vistiors at this time. No complaints at this time. JAEL MELLO [facility]
--- NOTE | 2019-08-20 12:01 | NUR ---
CHARGE ENTRY CLERK notified and fax discharge ordrers to [facility]. -BOOM Mendez
--- NOTE | 2019-08-20 12:24 | NUR ---
Discharge instructions reviewed with patient/family. Patient receptive and verbalizes understanding. Follow-up care arranged. Written instructions given to patient/family. KALANI SALEEM
== END 2019-08-20 12:24 | disposition home health service (06) | DRG 377 ==
LOC: ED 09:13 → ICCU 13:29 → EDHOLD 13:29 → 4E 13:29 → ICCU 14:18 → 4E 08-18 17:02
PROVIDERS: Emergency Medicine; Internal Medicine; ADMIT Internal Medicine
PROC: 30233K1 Transfusion of Nonautologous Frozen Plasma into Peripheral Vein, Percutaneous Approach (ICD-10-PCS; 2019-08-16)
PROC: 0DB68ZX Excision of Stomach, Via Natural or Artificial Opening Endoscopic, Diagnostic (ICD-10-PCS; principal; 2019-08-18)
DX: K92.2 Gastrointestinal hemorrhage, unspecified (principal); N17.0 Acute kidney failure with tubular necrosis; D68.32 Hemorrhagic disorder due to extrinsic circulating anticoagulants; E87.1 Hypo-osmolality and hyponatremia; D62 Acute posthemorrhagic anemia; I48.19 Other persistent atrial fibrillation; K44.9 Diaphragmatic hernia without obstruction or gangrene; T45.515A Adverse effect of anticoagulants, initial encounter; E83.41 Hypermagnesemia; E87.8 Other disorders of electrolyte and fluid balance, not elsewhere classified; E11.65 Type 2 diabetes mellitus with hyperglycemia; E78.5 Hyperlipidemia, unspecified; R31.9 Hematuria, unspecified; R79.82 Elevated C-reactive protein (CRP); I12.9 Hypertensive chronic kidney disease with stage 1 through stage 4 chronic kidney disease, or unspecified chronic kidney disease; N18.3 Chronic kidney disease, stage 3 (moderate); R41.9 Unspecified symptoms and signs involving cognitive functions and awareness; Y92.89 Other specified places as the place of occurrence of the external cause; Z85.828 Personal history of other malignant neoplasm of skin; Z88.0 Allergy status to penicillin; Z86.718 Personal history of other venous thrombosis and embolism; Z79.01 Long term (current) use of anticoagulants; Z90.49 Acquired absence of other specified parts of digestive tract; Z83.3 Family history of diabetes mellitus; Z79.899 Other long term (current) drug therapy; Z88.8 Allergy status to other drugs, medicaments and biological substances; Z91.018 Allergy to other foods; Z82.49 Family history of ischemic heart disease and other diseases of the circulatory system

== ENCOUNTER → 2019-08-26 | Outpatient (CLI) | payer OTHER ==
[~2019-08-26] MED LIST changes: +APRESOLINE25 MG PO; +CLONIDINE0.2 MG PO; +ELIQUIS5 M1 PO; +FENOFIBRATE160 MG PO; +GEMFIBROZIL600 MG PO; +GLIMEPIRIDE4 M1 PO; +GLIPIZIDE10 M2 PO; +GLUCOTROL10 MG PO; +JANTOVEN5 MG PO; +LASIX40 MG PO; +METOPROLOL SUCC25 M2 PO
== END | disposition home or self-care (01) ==
LOC: RESCLI 00:41
DX: I48.91 Unspecified atrial fibrillation (principal); I12.9 Hypertensive chronic kidney disease with stage 1 through stage 4 chronic kidney disease, or unspecified chronic kidney disease; E11.22 Type 2 diabetes mellitus with diabetic chronic kidney disease; N18.9 Chronic kidney disease, unspecified; H10.10 Acute atopic conjunctivitis, unspecified eye; E78.2 Mixed hyperlipidemia; R53.1 Weakness; Z79.899 Other long term (current) drug therapy

== ENCOUNTER 2020-05-15 04:10 | Emergency (ER) | payer MEDICARE ==
[~2020-05-15] VITALS: Ht 167.6 cm; Wt 86.2 kg
[2020-05-15 05:31] LABS: CREATININE 1.39 mg/dL (0.70-1.30); POTASSIUM 4.1 mmol/L (3.5-5.1); TOTAL PROTEIN 8.3 gm/dL (6.4-8.2)
[2020-05-15 05:54] LABS: BASO % 0.4 % (0.0-1.0); EOS # 0.1 10*3/uL (0.0-0.4); EOS % 0.8 % (1.0-4.0); LYMPH # 1.7 10*3/uL (1.3-4.4); LYMPH % 21.5 % (27.0-41.0); MEAN CELL VOLUME 89.7 fl (80.0-94.0); MEAN CORPUSCULAR HGB 29.7 pg (27.0-31.0); MEAN CORPUSCULAR HGB CONC 33.1 g/dl (33.0-37.0); MEAN PLATELET VOLUME 10.1 fl (9.6-12.3); MONO # 0.7 10*3/uL (0.1-1.0); MONO % 8.4 % (3.0-9.0); NEUT # 5.5 10*3/uL (2.3-7.9); NEUT % 68.5 % (47.0-73.0); PLATELET COUNT AUTOMATED 266 10*3/uL (130-400); RED BLOOD COUNT 5.46 10*6/uL (4.50-5.90); RED CELL DISTRI WIDTH 12.1 % (0-14.5)
[2020-05-15 07:01] LABS: BILIRUBIN NEGATIVE; CLARITY CLEAR (CLEAR); COLOR YELLOW (YELLOW); GLUCOSE NEGATIVE
[2020-05-15 07:02] LABS: BLOOD NEGATIVE (NEGATIVE); KETONE TRACE; LEUKO ESTERASE NEGATIVE (NEGATIVE); NITRITE NEGATIVE (NEGATIVE); PH 5.5 (4.5-8.0); SPECIFIC GRAVITY 1.025 (1.001-1.030)
[2020-05-15 07:03] LABS: BACTERIA TRACE; MUCOUS TRACE; RBC 0-2 rbc/hpf (0-2)
[2020-05-15 07:43] VITALS: BP 142/90
[2020-05-15] MEDS ORDERED: ZOFRAN4 MG PO (08:37)
== END 2020-05-15 08:34 | disposition home or self-care (01) ==
LOC: ED 04:10
PROVIDERS: Emergency Medicine
DX: R10.31 Right lower quadrant pain (principal); R11.0 Nausea; E11.9 Type 2 diabetes mellitus without complications; I10 Essential (primary) hypertension; E78.5 Hyperlipidemia, unspecified; Z88.0 Allergy status to penicillin; Z88.8 Allergy status to other drugs, medicaments and biological substances; Z91.018 Allergy to other foods; Z79.899 Other long term (current) drug therapy; Z86.718 Personal history of other venous thrombosis and embolism

== ENCOUNTER → 2020-05-18 | Outpatient (CLI) | payer OTHER ==
[~2020-05-18] MED LIST changes: +ZOFRAN4 MG PO
== END | disposition home or self-care (01) ==
LOC: RESCLI 09:37
PROVIDERS: ATTEND Internal Medicine Nephrology
DX: I48.0 Paroxysmal atrial fibrillation (principal); I12.9 Hypertensive chronic kidney disease with stage 1 through stage 4 chronic kidney disease, or unspecified chronic kidney disease; N18.3 Chronic kidney disease, stage 3 (moderate); E78.5 Hyperlipidemia, unspecified; R53.1 Weakness; E78.1 Pure hyperglyceridemia; E11.65 Type 2 diabetes mellitus with hyperglycemia; Z79.899 Other long term (current) drug therapy; Z90.49 Acquired absence of other specified parts of digestive tract; Z88.0 Allergy status to penicillin

== ENCOUNTER → 2020-07-05 | Outpatient (CLI) | payer OTHER | END | disposition home or self-care (01) | LOC: RESCLI 02:47 | PROVIDERS: ATTEND Internal Medicine | DX: Z23 Encounter for immunization (principal); M79.89 Other specified soft tissue disorders; I10 Essential (primary) hypertension; I48.0 Paroxysmal atrial fibrillation; E78.5 Hyperlipidemia, unspecified; E78.1 Pure hyperglyceridemia ==

== ENCOUNTER → 2020-08-29 | Outpatient (CLI) | payer OTHER | END | disposition home or self-care (01) | LOC: RESCLI 00:15 | PROVIDERS: ATTEND Internal Medicine | DX: I48.0 Paroxysmal atrial fibrillation (principal); I10 Essential (primary) hypertension; E78.5 Hyperlipidemia, unspecified; R53.1 Weakness; E78.1 Pure hyperglyceridemia; E11.65 Type 2 diabetes mellitus with hyperglycemia; N18.31 Chronic kidney disease, stage 3a; R21 Rash and other nonspecific skin eruption; Z79.899 Other long term (current) drug therapy ==

== ENCOUNTER 2021-03-21 19:08 | Inpatient (IN) | payer OTHER ==
[~2021-03-21] VITALS: Ht 170.1 cm; Wt 93.1 kg
[2021-03-21 19:15] VITALS: BP 165/88
[2021-03-21 20:07] LABS: BASO % 0.4 % (0.0-1.0); EOS # 0.1 10*3/uL (0.0-0.4); EOS % 1.6 % (1.0-4.0); HEMATOCRIT 42.3 % (42.0-52.0); LYMPH # 0.9 10*3/uL (1.3-4.4); LYMPH % 12.1 % (27.0-41.0); MEAN CELL VOLUME 89.2 fl (80.0-94.0); MEAN CORPUSCULAR HGB CONC 33.6 g/dl (33.0-37.0); MEAN PLATELET VOLUME 10.3 fl (9.6-12.3); MONO # 0.6 10*3/uL (0.1-1.0); MONO % 7.9 % (3.0-9.0); NEUT # 5.9 10*3/uL (2.3-7.9); NEUT % 77.6 % (47.0-73.0); PLATELET COUNT AUTOMATED 262 10*3/uL (130-400); RED BLOOD COUNT 4.74 10*6/uL (4.50-5.90); RED CELL DISTRI WIDTH 11.8 % (0-14.5); WHITE BLOOD COUNT 7.6 10*3/uL (4.8-10.8)
[2021-03-21 20:22] LABS: ALBUMIN 3.5 gm/dl (3.1-4.5); CREATININE 1.67 mg/dL (0.70-1.30); POTASSIUM 4.2 mmol/L (3.5-5.1); TOTAL PROTEIN 7.4 gm/dL (6.4-8.2)
[2021-03-21 22:52] LABS: BILIRUBIN Negative (Negative); BLOOD Trace-Intact (Negative); CLARITY Clear (Clear); COLOR Yellow (Yellow); GLUCOSE 3+ (Negative); KETONE Negative (Negative); LEUKO ESTERASE Negative (Negative); NITRITE Negative (Negative); SPECIFIC GRAVITY 1.025 (1.001-1.030)
[2021-03-21 23:05] LABS: BACTERIA 2+
[2021-03-21 23:32] VITALS: BP 162/78
[2021-03-22 00:35] VITALS: BP 162/92
[2021-03-22 06:23] LABS: BASO % 0.4 % (0.0-1.0); EOS # 0.2 10*3/uL (0.0-0.4); EOS % 2.3 % (1.0-4.0); HEMATOCRIT 42.1 % (42.0-52.0); LYMPH # 1.9 10*3/uL (1.3-4.4); LYMPH % 22.1 % (27.0-41.0); MEAN CORPUSCULAR HGB 29.7 pg (27.0-31.0); MEAN PLATELET VOLUME 10.3 fl (9.6-12.3); MONO # 0.9 10*3/uL (0.1-1.0); MONO % 10.6 % (3.0-9.0); NEUT # 5.4 10*3/uL (2.3-7.9); NEUT % 64.2 % (47.0-73.0); PLATELET COUNT AUTOMATED 254 10*3/uL (130-400); RED BLOOD COUNT 4.68 10*6/uL (4.50-5.90); RED CELL DISTRI WIDTH 12.1 % (0-14.5); WHITE BLOOD COUNT 8.4 10*3/uL (4.8-10.8)
[2021-03-22 06:52] LABS: ALBUMIN 3.4 gm/dl (3.1-4.5); BUN 16 mg/dl (7-24); CHLORIDE 108 mmol/L (98-107); CHOLESTEROL 155 mg/dL (<200); CREATININE 1.28 mg/dL (0.70-1.30); SGOT/AST 13 IU/L (3-35); SGPT/ALT 14 U/L (12-78); SODIUM 141 mmol/L (136-145); TOTAL PROTEIN 7.3 gm/dL (6.4-8.2); TRIGLYCERIDES 254 mg/dl (<150)
[2021-03-22 06:59] LABS: ALKALINE PHOSPHATASE 49 U/L (45-117); FREE T4 1.08 ng/dl (0.76-1.46); LDL CHOLESTEROL 73 mg/dL (9-159)
[2021-03-22 07:13] LABS: VITAMIN D, 25-HYDROXY 44.7 ng/mL (30-100)
[2021-03-22 08:00] VITALS: BP 168/98
[2021-03-22] MEDS ORDERED: HYDROCODONE-AC1 EAC1 PO ×2 (11:05)
[2021-03-22 12:00] VITALS: BP 173/89
[2021-03-22] MEDS ORDERED: LASIX20 MG PO (12:05)
[2021-03-22 16:00] VITALS: BP 153/80
[2021-03-22] MEDS ORDERED: ZOFRAN4 MG PO (16:30)
== END 2021-03-22 17:18 | disposition home or self-care (01) | DRG 391 ==
LOC: ED 19:08 → 5E 22:52 → EDHOLD 22:52 → 5E 03-22 00:17
PROVIDERS: Emergency Medicine; Internal Medicine; ADMIT Internal Medicine; ATTEND Internal Medicine
DX: R19.00 Intra-abdominal and pelvic swelling, mass and lump, unspecified site (principal); N17.0 Acute kidney failure with tubular necrosis; E83.41 Hypermagnesemia; M54.32 Sciatica, left side; I77.9 Disorder of arteries and arterioles, unspecified; N18.32 Chronic kidney disease, stage 3b; I48.91 Unspecified atrial fibrillation; E78.5 Hyperlipidemia, unspecified; S31.103A Unspecified open wound of abdominal wall, right lower quadrant without penetration into peritoneal cavity, initial encounter; E11.22 Type 2 diabetes mellitus with diabetic chronic kidney disease; I12.9 Hypertensive chronic kidney disease with stage 1 through stage 4 chronic kidney disease, or unspecified chronic kidney disease; E11.51 Type 2 diabetes mellitus with diabetic peripheral angiopathy without gangrene; E11.65 Type 2 diabetes mellitus with hyperglycemia; Z68.32 Body mass index [BMI] 32.0-32.9, adult; Z88.0 Allergy status to penicillin; Z88.8 Allergy status to other drugs, medicaments and biological substances; Z86.718 Personal history of other venous thrombosis and embolism; Z90.49 Acquired absence of other specified parts of digestive tract; Z82.49 Family history of ischemic heart disease and other diseases of the circulatory system; Z83.3 Family history of diabetes mellitus; Z87.891 Personal history of nicotine dependence; X58.XXXA Exposure to other specified factors, initial encounter; Y93.89 Activity, other specified; Y92.89 Other specified places as the place of occurrence of the external cause; Y99.8 Other external cause status

== ENCOUNTER 2021-04-03 00:31 | Emergency (ER) | payer OTHER ==
[~2021-04-03] VITALS: Ht 170.1 cm; Wt 100.2 kg
[~2021-04-03 00:31] MED LIST changes: +HYDROCODONE-AC1 EAC1 PO; +LASIX20 MG PO
[2021-04-03 00:34] VITALS: BP 184/89
== END 2021-04-03 02:27 | disposition home or self-care (01) ==
LOC: ED 00:31
DX: K59.00 Constipation, unspecified (principal); Z91.018 Allergy to other foods; Z88.0 Allergy status to penicillin; Z79.899 Other long term (current) drug therapy; Z90.49 Acquired absence of other specified parts of digestive tract; Z98.890 Other specified postprocedural states; Z87.891 Personal history of nicotine dependence

== ENCOUNTER → 2021-05-03 | Outpatient (CLI) | payer OTHER | END | disposition home or self-care (01) | LOC: RESCLI 00:19 | PROVIDERS: ATTEND Internal Medicine | DX: M79.89 Other specified soft tissue disorders (principal); I10 Essential (primary) hypertension; I48.0 Paroxysmal atrial fibrillation; E11.65 Type 2 diabetes mellitus with hyperglycemia; E78.1 Pure hyperglyceridemia; E78.5 Hyperlipidemia, unspecified; R19.00 Intra-abdominal and pelvic swelling, mass and lump, unspecified site; E55.9 Vitamin D deficiency, unspecified; Z88.0 Allergy status to penicillin; Z88.8 Allergy status to other drugs, medicaments and biological substances; Z90.49 Acquired absence of other specified parts of digestive tract; Z98.890 Other specified postprocedural states; Z79.899 Other long term (current) drug therapy ==

== ENCOUNTER → 2021-06-07 | Outpatient (CLI) | payer OTHER | END | disposition home or self-care (01) | LOC: RESCLI 00:07 | PROVIDERS: ATTEND Internal Medicine | DX: I63.9 Cerebral infarction, unspecified (principal); M17.9 Osteoarthritis of knee, unspecified; R19.00 Intra-abdominal and pelvic swelling, mass and lump, unspecified site; M79.605 Pain in left leg; Z79.899 Other long term (current) drug therapy ==

== ENCOUNTER 2021-07-15 08:25 | Emergency (ER) | payer OTHER ==
[2021-07-15 08:32] VITALS: BP 200/80
[2021-07-15] MEDS ORDERED: VALTREX1000 MG PO (08:50)
== END 2021-07-15 09:01 | disposition home or self-care (01) ==
LOC: ED 08:25
DX: B02.9 Zoster without complications (principal); I12.9 Hypertensive chronic kidney disease with stage 1 through stage 4 chronic kidney disease, or unspecified chronic kidney disease; N18.9 Chronic kidney disease, unspecified; Z88.0 Allergy status to penicillin; Z88.8 Allergy status to other drugs, medicaments and biological substances; Z79.899 Other long term (current) drug therapy; E78.5 Hyperlipidemia, unspecified; Z87.891 Personal history of nicotine dependence

== ENCOUNTER 2022-01-01 17:10 | Emergency (ER) | payer OTHER ==
[~2022-01-01] VITALS: Wt 90.7 kg
[~2022-01-01 17:10] MED LIST changes: +VALTREX1000 MG PO
[2022-01-01 17:15] VITALS: BP 161/84
[2022-01-01 17:40] LABS: BASO % 0.5 % (0.0-1.0); EOS # 0.2 10*3/uL (0.0-0.4); EOS % 2.7 % (1.0-4.0); HEMATOCRIT 46.8 % (42.0-52.0); LYMPH # 1.8 10*3/uL (1.3-4.4); LYMPH % 22.3 % (27.0-41.0); MEAN CELL VOLUME 90.3 fl (80.0-94.0); MEAN CORPUSCULAR HGB 30.5 pg (27.0-31.0); MEAN CORPUSCULAR HGB CONC 33.8 g/dl (33.0-37.0); MEAN PLATELET VOLUME 9.8 fl (9.6-12.3); NEUT # 5.1 10*3/uL (2.3-7.9); NEUT % 62.3 % (47.0-73.0); PLATELET COUNT AUTOMATED 204 10*3/uL (130-400); RED BLOOD COUNT 5.18 10*6/uL (4.50-5.90); RED CELL DISTRI WIDTH 12.6 % (0-14.5); WHITE BLOOD COUNT 8.2 10*3/uL (4.8-10.8)
[2022-01-01 17:55] LABS: CREATININE 1.46 mg/dL (0.70-1.30); POTASSIUM 3.7 mmol/L (3.5-5.1); TOTAL PROTEIN 7.3 gm/dL (6.4-8.2)
== END 2022-01-01 19:00 | disposition left against medical advice (07) ==
LOC: ED 17:10
PROVIDERS: Physician Assistant
DX: R10.9 Unspecified abdominal pain (principal); R11.0 Nausea; Z88.0 Allergy status to penicillin; Z88.8 Allergy status to other drugs, medicaments and biological substances; Z79.899 Other long term (current) drug therapy; Z90.49 Acquired absence of other specified parts of digestive tract; Z98.890 Other specified postprocedural states; Z87.891 Personal history of nicotine dependence

== ENCOUNTER → 2022-04-16 | Outpatient (CLI) | payer OTHER ==
[~2022-04-16] MED LIST changes: +ATORVASTATIN CA20 M1 PO; +JARDIANCE25 MG PO; -LASIX20 MG PO; +LISINOPRIL5 MG PO; +OMEPRAZOLE40 MG PO; +ONDANSETRON HYDR4 MG PO; +PANTOPRAZOLE SO40 MG PO; +PIOGLITAZONE HC30 MG PO; +TRADJENTA5 M1 PO; +VITAMIN D325 MCG PO
== END | disposition home or self-care (01) ==
LOC: US 15:00 → RAD 15:03
PROVIDERS: ATTEND Internal Medicine Nephrology
DX: M17.12 Unilateral primary osteoarthritis, left knee (principal); M25.562 Pain in left knee; R60.0 Localized edema

== ENCOUNTER 2022-05-15 12:23 | Emergency (ER) | payer OTHER ==
[~2022-05-15] VITALS: Wt 103.4 kg
[2022-05-15 12:24] VITALS: BP 105/57
== END 2022-05-15 14:28 | disposition left against medical advice (07) ==
LOC: ED 12:23
DX: L08.89 Other specified local infections of the skin and subcutaneous tissue (principal); Z53.21 Procedure and treatment not carried out due to patient leaving prior to being seen by health care provider

== ENCOUNTER 2022-05-16 14:08 | Inpatient (IN) | payer OTHER ==
[~2022-05-16] VITALS: Ht 167.6 cm; Wt 103.0 kg
[2022-05-16 14:13] VITALS: BP 144/67
[2022-05-16 14:52] LABS: BASO % 0.4 % (0.0-1.0); EOS # 0.3 10*3/uL (0.0-0.4); HEMATOCRIT 47.1 % (42.0-52.0); LYMPH # 1.7 10*3/uL (1.3-4.4); LYMPH % 20.4 % (27.0-41.0); MEAN CELL VOLUME 92.2 fl (80.0-94.0); MEAN CORPUSCULAR HGB 30.5 pg (27.0-31.0); MEAN CORPUSCULAR HGB CONC 33.1 g/dl (33.0-37.0); MONO % 11.5 % (3.0-9.0); NEUT # 5.4 10*3/uL (2.3-7.9); NEUT % 63.5 % (47.0-73.0); PLATELET COUNT AUTOMATED 223 10*3/uL (130-400); RED BLOOD COUNT 5.11 10*6/uL (4.50-5.90); RED CELL DISTRI WIDTH 13.4 % (0-14.5); WHITE BLOOD COUNT 8.4 10*3/uL (4.8-10.8)
[2022-05-16 15:18] LABS: CREATININE 1.61 mg/dL (0.70-1.30); POTASSIUM 3.6 mmol/L (3.5-5.1); TOTAL PROTEIN 7.2 gm/dL (6.4-8.2)
[2022-05-16 17:10] VITALS: BP 153/63
[2022-05-16 20:39] VITALS: BP 180/98
[2022-05-17] VITALS: BP 187/83
[2022-05-17 08:00] VITALS: BP 134/79
[2022-05-17 12:00] VITALS: BP 147/75
[2022-05-17 14:41] VITALS: BP 145/78
[2022-05-17 20:00] VITALS: BP 141/61
[2022-05-18] VITALS: BP 128/67
[2022-05-18 08:00] VITALS: BP 117/83
[2022-05-18 12:00] VITALS: BP 138/78
[2022-05-18 16:00] VITALS: BP 98/52
[2022-05-18 19:36] LABS: BASO % 0.5 % (0.0-1.0); EOS # 0.4 10*3/uL (0.0-0.4); EOS % 4.2 % (1.0-4.0); HEMATOCRIT 45.8 % (42.0-52.0); LYMPH # 1.7 10*3/uL (1.3-4.4); MEAN CORPUSCULAR HGB 30.6 pg (27.0-31.0); MEAN CORPUSCULAR HGB CONC 31.9 g/dl (33.0-37.0); MONO # 1.3 10*3/uL (0.1-1.0); MONO % 14.4 % (3.0-9.0); NEUT # 5.5 10*3/uL (2.3-7.9); NEUT % 61.8 % (47.0-73.0); PLATELET COUNT AUTOMATED 190 10*3/uL (130-400); RED BLOOD COUNT 4.77 10*6/uL (4.50-5.90); RED CELL DISTRI WIDTH 13.9 % (0-14.5); WHITE BLOOD COUNT 8.8 10*3/uL (4.8-10.8)
[2022-05-18 19:55] LABS: CREATININE 1.85 mg/dL (0.70-1.30); POTASSIUM 3.5 mmol/L (3.5-5.1); TOTAL PROTEIN 6.7 gm/dL (6.4-8.2)
[2022-05-18 20:00] VITALS: BP 103/64
[2022-05-19] VITALS: BP 139/87
[2022-05-19 04:41] VITALS: BP 136/55
[2022-05-19 06:29] LABS: CREATININE 1.7 mg/dL (0.70-1.30); POTASSIUM 3.5 mmol/L (3.5-5.1)
[2022-05-19 06:31] LABS: BASO % 0.4 % (0.0-1.0); EOS # 0.5 10*3/uL (0.0-0.4); EOS % 4.6 % (1.0-4.0); HEMATOCRIT 46.4 % (42.0-52.0); LYMPH # 1.8 10*3/uL (1.3-4.4); LYMPH % 17.6 % (27.0-41.0); MEAN CELL VOLUME 93.9 fl (80.0-94.0); MEAN CORPUSCULAR HGB 30.6 pg (27.0-31.0); MEAN CORPUSCULAR HGB CONC 32.5 g/dl (33.0-37.0); MEAN PLATELET VOLUME 10.4 fl (9.6-12.3); MONO # 1.3 10*3/uL (0.1-1.0); MONO % 12.6 % (3.0-9.0); NEUT # 6.6 10*3/uL (2.3-7.9); NEUT % 64.4 % (47.0-73.0); PLATELET COUNT AUTOMATED 200 10*3/uL (130-400); RED BLOOD COUNT 4.94 10*6/uL (4.50-5.90); RED CELL DISTRI WIDTH 13.5 % (0-14.5); WHITE BLOOD COUNT 10.2 10*3/uL (4.8-10.8)
[2022-05-19 08:00] VITALS: BP 120/47
[2022-05-19 10:35] VITALS: BP 119/69
[2022-05-19 12:00] VITALS: BP 118/65
[2022-05-19 16:00] VITALS: BP 103/52
[2022-05-19] MEDS ORDERED: CEFUROXIME AXE500 MG PO (16:12)
[2022-05-19] MEDS ORDERED: DOXYCYCLINE HY100 M3 PO (16:12)
== END 2022-05-19 18:35 | disposition home or self-care (01) | DRG 602 ==
LOC: ED 14:08 → 4E 15:44 → EDHOLD 15:44 → 4E 16:28
PROVIDERS: Internal Medicine; ADMIT Internal Medicine; ATTEND Internal Medicine
DX: L03.115 Cellulitis of right lower limb (principal); N17.0 Acute kidney failure with tubular necrosis; I12.9 Hypertensive chronic kidney disease with stage 1 through stage 4 chronic kidney disease, or unspecified chronic kidney disease; L03.116 Cellulitis of left lower limb; E11.22 Type 2 diabetes mellitus with diabetic chronic kidney disease; N18.30 Chronic kidney disease, stage 3 unspecified; E66.9 Obesity, unspecified; I87.8 Other specified disorders of veins; I87.2 Venous insufficiency (chronic) (peripheral); E11.51 Type 2 diabetes mellitus with diabetic peripheral angiopathy without gangrene; Z88.0 Allergy status to penicillin; Z88.8 Allergy status to other drugs, medicaments and biological substances; Z91.02 Food additives allergy status; Z90.49 Acquired absence of other specified parts of digestive tract; Z82.49 Family history of ischemic heart disease and other diseases of the circulatory system; Z68.37 Body mass index [BMI] 37.0-37.9, adult

== ENCOUNTER 2022-11-09 21:38 | Emergency (ER) | payer OTHER ==
[~2022-11-09] VITALS: Ht 162.6 cm; Wt 107.5 kg
[~2022-11-09 21:38] MED LIST changes: +CEFUROXIME AXE500 MG PO; +DOXYCYCLINE HY100 M3 PO
[2022-11-09 22:54] VITALS: BP 159/80
== END 2022-11-09 23:42 | disposition home or self-care (01) ==
LOC: ED 21:38
DX: S86.912A Strain of unspecified muscle(s) and tendon(s) at lower leg level, left leg, initial encounter (principal); K21.9 Gastro-esophageal reflux disease without esophagitis; I10 Essential (primary) hypertension; I48.91 Unspecified atrial fibrillation; M10.00 Idiopathic gout, unspecified site; Z91.018 Allergy to other foods; Z88.0 Allergy status to penicillin; Z88.8 Allergy status to other drugs, medicaments and biological substances; Z90.49 Acquired absence of other specified parts of digestive tract; Z98.890 Other specified postprocedural states; W18.2XXA Fall in (into) shower or empty bathtub, initial encounter; Y93.89 Activity, other specified; Y92.89 Other specified places as the place of occurrence of the external cause; Y99.8 Other external cause status

== ENCOUNTER 2022-11-21 16:42 | Emergency (ER) | payer OTHER ==
[2022-11-21 17:03] LABS: BASO % 0.2 % (0.0-1.0); LYMPH % 17.5 % (27.0-41.0); MEAN CELL VOLUME 90.9 fl (80.0-94.0); MEAN CORPUSCULAR HGB 29.8 pg (27.0-31.0); MEAN CORPUSCULAR HGB CONC 32.8 g/dl (33.0-37.0); MEAN PLATELET VOLUME 9.9 fl (9.6-12.3); MONO # 0.7 10*3/uL (0.1-1.0); MONO % 11.9 % (3.0-9.0); PLATELET COUNT AUTOMATED 181 10*3/uL (130-400); RED BLOOD COUNT 5.17 10*6/uL (4.50-5.90); RED CELL DISTRI WIDTH 13.4 % (0-14.5); WHITE BLOOD COUNT 5.7 10*3/uL (4.8-10.8)
[2022-11-21 17:22] LABS: POTASSIUM 3.7 mmol/L (3.4-5.1); TOTAL PROTEIN 7.5 gm/dL (6.0-8.0)
[2022-11-21 18:03] LABS: BILIRUBIN Negative (Negative); BLOOD Negative (Negative); CLARITY Clear (Clear); COLOR Yellow (Yellow); GLUCOSE 2+ (Negative); KETONE Negative (Negative); LEUKO ESTERASE Negative (Negative); NITRITE Negative (Negative); SPECIFIC GRAVITY 1.015 (1.001-1.030); UROBILINOGEN 0.2 E.U./dl (0.0-1.0)
[2022-11-21] MEDS ORDERED: ELIQUIS5 M1 PO (18:45)
[2022-11-21] MEDS ORDERED: JARDIANCE25 MG PO (18:46)
[2022-11-21] MEDS ORDERED: LASIX40 MG PO (18:46)
[2022-11-21] MEDS ORDERED: LISINOPRIL5 MG PO (18:46)
[2022-11-21] MEDS ORDERED: TRADJENTA5 M1 PO (18:46)
[2022-11-21] MEDS ORDERED: PIOGLITAZONE HC30 MG PO (18:46)
[2022-11-21] MEDS ORDERED: TOPROL XL50 M1 PO (18:47)
[2022-11-21] MEDS ORDERED: LIPITOR20 MG PO (18:47)
[2022-11-21] MEDS ORDERED: PANTOPRAZOLE SO40 MG PO (18:47)
[2022-11-21] MEDS ORDERED: GLIPIZIDE10 M2 PO (18:48)
[2022-11-21] MEDS ORDERED: VITAMIN D250 MC1 PO (18:48)
[2022-11-21] MEDS ORDERED: DAILY VALUE1 EACH PO (18:48)
[2022-11-21] MEDS ORDERED: VITAMIN C100 M3 PO (18:49)
[2022-11-21] MEDS ORDERED: COLACE100 MG PO (18:49)
[2022-11-21] MEDS ORDERED: POTASSIUM99 M7 PO (18:50)
[2022-11-21 18:51] LABS: BACTERIA 1+; FINE GRANULAR CAST 0-2
[2022-11-21] MEDS ORDERED: POTASSIUM CHLO20 ME3 PO (18:51)
[2022-11-22 08:57] VITALS: BP 110/56
== END 2022-11-22 10:00 | disposition short-term general hospital (02) ==
LOC: ED 16:42
PROVIDERS: Emergency Medicine
DX: N17.9 Acute kidney failure, unspecified (principal); N13.30 Unspecified hydronephrosis; J18.8 Other pneumonia, unspecified organism; G93.41 Metabolic encephalopathy; R19.00 Intra-abdominal and pelvic swelling, mass and lump, unspecified site; Z88.0 Allergy status to penicillin; Z88.8 Allergy status to other drugs, medicaments and biological substances; Z79.899 Other long term (current) drug therapy; Z90.49 Acquired absence of other specified parts of digestive tract; Z98.890 Other specified postprocedural states; Z87.891 Personal history of nicotine dependence